=== PATIENT | female | born 1990 | race African-American/Black ===

== ENCOUNTER 2016-08-14 00:37 | Emergency (ER) | payer SELFPAY ==
[2016-08-14 01:23] LABS: #Eosinphils 0.1 thou/uL (0.0-0.7); #Lymphocytes 0.6 thou/uL (1.20-3.40); #Monocytes 0.1 thou/uL (0.11-0.59); #Neutrophils 5.9 thou/uL (1.40-6.50); %Basophils 0.2 % (0.0-1.0); %Lymphocytes 8.4 % (21.0-51.0); %Monocytes 1.6 % (0.0-10.0); %Neutrophils 88.8 % (42.0-75.0); Hemoglobin 12.9 g/dL (12.0-16.0); Mean Corpuscular HGB CONC 33.2 g/dL (32.0-36.0); Mean Corpuscular Hemoglobin 27.6 pg (27.0-31.0); Mean Corpuscular Volume 82.9 fl (81.0-99.0); Mean Platelet Volume 7.9 fL (7.4-10.4); Platelet Count 217 thou/uL (130-400); RBC Distribution Width 13.6 % (11.5-14.5); Red Blood Cell (RBC) Count 4.67 mill/uL (4.20-5.40); White Blood Cell (WBC) Count 6.6 thou/uL (4.8-10.8)
[2016-08-14] MEDS ORDERED: Ondansetron HCl/PF 4 MG/2 ML Vial ONE (01:26)
[2016-08-14] MEDS ORDERED: Acetaminophen 500 MG TAB ONE (01:27)
[2016-08-14 01:32] LABS: BHCG - Serum NEGATIVE (NEGATIVE); Pregs Control Background? CLEAR/WHITE (CLR/WHITE); Pregs Control Bar Appear? YES (CONTROL BAR)
[2016-08-14 01:44] LABS: ALT (SGPT) 21 U/L (0-55); AST (SGOT) 24 U/L (5-34); Albumin 4.5 g/dL (3.5-5.0); Alkaline Phosphatase 75 U/L (40-150); Anion Gap 19 mmol/L (10-20); BUN (Urea Nitrogen) 10 mg/dL (7.0-18.7); Bilirubin, Total 0.3 mg/dL (0.2-1.2); Calc. Creatinine Clearance 0 mL/min (70-130); Calcium 9.1 mg/dL (7.8-10.44); Carbon Dioxide 19 mmol/L (22-29); Chloride 105 mmol/L (98-107); Estimated GFR-MDRD 78; Globulin 3.2 g/dL (2.4-3.5); Glucose 109 mg/dL (70-105); Potassium 3.7 mmol/L (3.5-5.1); Protein, Total 7.7 g/dL (6.0-8.3); Sodium 139 mmol/L (136-145)
[2016-08-14] MEDS ORDERED: Loperamide HCl 2 MG CAP ONE (01:57)
--- NOTE | 2016-08-14 03:19 | ERRECORD ---
[facility] EMERGENCY RECORD HPI NAUSEA/VOMITING/DIARRHEA (01:55 BPIC) CHIEF COMPLAINT: Patient presents for evaluation of nausea, Patient presents for evaluation of vomiting, Patient presents for evaluation of diarrhea. HISTORIAN: History provided by patient, Pt with N/V/D that has started within the past 24-48 hours. No unusual travel, food or sick contacts. Mild non focal abdominal cramping. LOCATION FEMALE: Symptoms are generalized. TIME COURSE: Gradual onset of symptoms, There has been no change in the patient's symptoms over time. ASSOCIATED WITH FEMALE: No associated bright red blood per rectum, No associated hematemesis. EXACERBATED BY: Patient's condition exacerbated by nothing. RELIEVED BY: Patient's condition relieved by nothing. ROS (01:55 BPIC) CONSTITUTIONAL: Negative constitutional review of systems, Historian denies chills, Historian denies fever. EYES: Negative eye review of systems. ENT: Negative ears, nose, throat review of systems. CARDIOVASCULAR: Negative cardiovascular review of systems, Historian denies chest pain, Historian denies palpitations. RESPIRATORY: Negative respiratory review of systems, Historian denies cough, Historian denies shortness of breath. GI: see hpi. MUSCULOSKELETAL: Negative musculoskeletal review of systems. SKIN: Negative skin review of systems. NEUROLOGIC: Negative neurologic review of systems. ENDOCRINE: Negative endocrine review of systems. HEMO/LYMPHATIC: Normal hematologic/lymphatic system review. PSYCHIATRIC: Negative psychiatric review of systems. NOTES: All other ROS is negative except as listed in HPI. PAST MEDICAL HISTORY MEDICAL HISTORY: Notes: SCOLIOSIS, Flu vaccine up to date, Tetanus not up to date, Pneumococcal vaccine up to date, Flu vaccine up to date, Tetanus immunization up to date, Notes: SCOLOSIS. 516. (00:50 ADEA) FEMALE SURGICAL HISTORY: Patient has no surgical history, Patient has no surgical history. 11-25-16. (00:50 ADEA) PSYCHIATRIC HISTORY: Notes: DENIES, Notes: DENIES, No previous psychiatric history. 16. (00:50 ADEA) SOCIAL HISTORY: Patient denies alcohol use, Patient denies drug use, Patient has no smoking history, Lives at home, with family, Patient denies alcohol use, Patient denies drug use, Patient has no smoking history, Lives at home, with family, Patient denies alcohol use, Patient denies drug use, Patient has no smoking history, &a-1R&a+25V*p+0X*d9504L*c202B*c15G*c2P*p-0X&a-25V&a+1R Name: Mariaelena Iqbal : 1990 F26 MedRec: [id number] AcctNum: [id number] Prepared: [facility] Aug 14, 2016 05:30 by Interface Page 1 of 4 pMD [facility] EMERGENCY RECORD Patient denies alcohol use, Patient denies drug use, Patient has no smoking history. (00:50 ADEA) FAMILY HISTORY: Family istory is not significant, No significant family history. (00:50 ADEA) NOTES: I have reviewed and agree with the PMH/PSxH/FamHx/SocHx obtained by the nurse. (01:55 BPIC) KNOWN ALLERGIES Penicillins: Reaction: Hives, Severity: Severe, Source: Patient CURRENT MEDICATIONS (00:48 ADEA) TYLENOL: 30 MLS AT 0000. VITAL SIGNS VITAL SIGNS: BP: 100/81 (Sitting), Pulse: 124, Resp: 22, Temp: 101.1 (Tympanic), Pain: 10, O2 sat: 95 on Face mask, Time: 08/14/2016 00:44. (00:44 ADEA) BP: 99/57, Pulse: 68, Time: 08/14/2016 02:55. (02:55 MCRS) BP: 99/57, Pulse: 68, Resp: 18, Temp: 99.2, Pain: 0, O2 sat: 98, Time: 08/14/2016 02:55. (02:55 MCRS) BP: 112/60 (Right Arm), Pulse: 66, Time: 08/14/2016 02:00. (02:00 MCRS) (02:00 MCRS) BP: 112/60, Pulse: 66, Resp: 18, Pain: 0, O2 sat: 98 on Room Air, Time: 08/14/2016 02:00. (02:00 MCRS) PHYSICAL EXAM (01:55 BPIC) CONSTITUTIONAL: Vital signs reviewed, Patient appears non toxic, Patient alert and oriented to person, place and time, Pt is in no apparent distress. HEAD: Head exam included findings of head atraumatic, normocephalic. EYES: Eye exam included findings of eyelids normal to inspection, Pupils equally round and reactive to light, Extraocular muscles intact. ENT: ENT exam normal, Nose exam normal, no nasal deformity, no bleeding from nares, Pharynx exam normal, Mouth exam normal, mucous membranes moist. NECK: Neck exam included findings of normal range of motion, Trachea midline. RESPIRATORY CHEST: Respiratory and chest exam normal, Breath sounds clear, No wheezing, No rales, Chest exam included findings of chest movement symmetrical, Chest expansion equal. CARDIOVASCULAR: Cardiovascular assessment normal, Cardiovascular exam included findings of heart rate regular rate and rhythm, Heart sounds normal. ABDOMEN FEMALE: Abdominal exam included findings of abdomen nontender, Bowel sounds normal, no mass, no pulsatile masses, no peritoneal signs. BACK: Back exam included findings of normal inspection, range of motion normal, no costovertebral angle tenderness. &a-1R&a+25V*p+0X*[id number]*c202B*c15G*c2P*p-0X&a-25V&a+1R Name: Mariaelena Iqbal : 1990 F26 MedRec: [id number] AcctNum: [id number] Prepared: [facility] Aug 14, 2016 05:30 by Interface Page 2 of 4 pMD [facility] EMERGENCY RECORD UPPER EXTREMITY: Upper extremity exam included findings of inspection normal, Range of motion normal. LOWER EXTREMITY: Lower extremity exam included findings of inspection normal, Range of motion normal. NEURO: Neuro exam findings include patient oriented to person, place and time, Speech normal, no focal motor deficits, no focal sensory deficits. SKIN: Skin exam included findings of skin warm, dry, and normal in color. LYMPHATIC: Lymphatic exam normal. PSYCHIATRIC: Psychiatric exam included findings of patient oriented to person place and time, Normal affect. MEDICATION ADMINISTRATION SUMMARY Drug Name: Imodium, Dose Ordered: 2 mg, Route: Oral, Status: Given, Time: 02:00 08/14/2016, Drug Name: acetaminophen oral, Dose Ordered: 1 g, Route: Oral, Status: Given, Time: 01:40 08/14/2016, Drug Name: sodium chloride 0.9 % intravenous, Dose Ordered: 1000 mL, Route: IV Fluid Infusion, Status: Given, Time: 01:39 08/14/2016, Drug Name: ondansetron HCl intravenous, Dose Ordered: 4 mg, Route: IV Push, Status: Given, Time: 01:38 08/14/2016, Detailed record available in Medication Service section. DOCTOR NOTES (:55 BPIC) TEXT: N/V/D symptomatic treatment, icreased fluid intake and Return to the ED with any development of increasing abdominal pain. likely viral gastroenteritis, but risks of appendicitis discussed I discussed the diagnosis with the patient prior to discharge. All questions were answered. There is no indication for admission currently and the patient will follow up with his primary care physician. Any pertinent labs or imaging was reviewed and dicussed with the patient. If any new or emergent symptoms occur, the patient will return to the emergency department. PROBLEM LIST No recorded problems DIAGNOSIS ( BPIC) FINAL: PRIMARY: Vomiting, ADDITIONAL: Diarrhea, Fever. PRESCRIPTION (57 BPIC) traMADol: TABLET : 50 mg : ORAL : Quantity: 50 Unit: mg Route: ORAL Schedule: every 6 hours PRN Dispense: 20 Unit: tab(s) May substitute. Refills: No Refills . NOTES: No Refills. &a-1R&a+25V*p+0X*c3210J*c202B*c15G*c2P*p-0X&a-25V&a+1R Name: Mariaelena Iqbal : 1990 F26 MedRec: [id number] AcctNum: [id number] Prepared: [facility] Aug 14, 2016 05:30 by Interface Page 3 of 4 pMD [facility] EMERGENCY RECORD Zofran ODT: TABLET,DISINTEGRATING : 8 mg : ORAL : Quantity: 8 Unit: mg Route: ORAL Schedule: every 6 hours PRN Dispense: 20 Unit: tab(s) May substitute. Refills: No Refills . NOTES: ^s=No Refills No Refills. DISPOSITION PATIENT: Disposition Type: Discharge, Disposition: *Discharge Home, Condition: Good. (:57 BPIC) Disposition Transport: Car. (03:14 MCRS) Patient left the department. (03:14 MCRS) Soto: YANELY=FELICIA Muller, Juma BPIC=MD Caroline, Momo MCRS=FELICIA Starks, Malcolm &a-1R&a+25V*p+0X*v2215L*c202B*c15G*c2P*p-0X&a-25V&a+1R Name: Mariaelena Iqbal : 1990 F26 MedRec: [id number] AcctNum: [id number] Prepared: [facility] Aug 14, 2016 05:30 by Interface Page 4 of 4 pMD MTDD
--- NOTE | 2016-08-14 03:25 | PICIS ---
[facility] EMERGENCY RECORD TRIAGE (00:47 ADEA) TRIAGE NOTES: LOOSE STOOLS X 2 DAYS AND DON'T FEEL GOOD. (00:47 ADEA) PATIENT: NAME: Mariaelena Iqbal, AGE: 26, GENDER: female, : Thu1990, TIME OF GREET: ThuAug 14, 2016 00:38, PREFERRED LANGUAGE: Albanian, ETHNICITY: Not or , FALL RISK: NO, ECODE BILLING MAP: [facility], SSN: [id number], Zip Code: [address], KG WEIGHT: 74.84, , , PERSON ID: [id number], PCP: NONE. (00:47 ADEA) PHONE: . (00:52) COMPLAINT: FLU LIKE SYMPTOMS. (00:47 ADEA) ADMISSION: URGENCY: 3 Urgent, ADMISSION SOURCE: Home, TRANSPORT: CAR, BED: ED -05. (00:47 ADEA) SIRS SCORING: Heart Rate 110-139 (2), Temp range 96.8-101.1 (0), respiratory rate 12-24 (0), Mental Status altered: no (0), Infection or Suspected Infection: No. (00:50 ADEA) TRIAGE SCREENING: Patient denies suicidal ideation, Patient denies presence of domestic violence. (00:50 ADEA) LMP: Last menstrual period: 07/17/2016. (00:50 ADEA) PROVIDERS: TRIAGE NURSE: Juma Muller RN. (00:47 ADEA) VITAL SIGNS: BP 100/81, (Sitting), Pulse 124, Resp 22, Temp 101.1, (Tympanic), Pain 10, O2 Sat 95, on Face mask, Time 08/14/2016 00:44. (00:44 ADEA) KNOWN ALLERGIES Penicillins: Reaction: Hives, Severity: Severe, Source: Patient CURRENT MEDICATIONS (00:48 ADEA) TYLENOL: 30 MLS AT 0000. VITAL SIGNS VITAL SIGNS: BP: 100/81 (Sitting), Pulse: 124, Resp: 22, Temp: 101.1 (Tympanic), Pain: 10, O2 sat: 95 on Face mask, Time: 08/14/2016 00:44. (00:44 ADEA) BP: 99/57, Pulse: 68, Time: 08/14/2016 02:55. (02:55 MCRS) BP: 99/57, Pulse: 68, Resp: 18, Temp: 99.2, Pain: 0, O2 sat: 98, Time: 08/14/2016 02:55. (02:55 MCRS) BP: 112/60 (Right Arm), Pulse: 66, Time: 08/14/2016 02:00. (02:00 MCRS) (02:00 MCRS) BP: 112/60, Pulse: 66, Resp: 18, Pain: 0, O2 sat: 98 on Room Air, Time: 08/14/2016 02:00. (02:00 MCRS) NURSING ASSESSMENT: ABDOMEN (00:50 ADEA) CONSTITUTIONAL: Complex assessment performed, Patient arrives ambulatory, Gait steady, History obtained from patient, Patient appears, restless, uncomfortable, Patient cooperative, Patient alert, Oriented to person, place and time, Skin warm, Skin dry, Skin normal in color, Mucous membranes pink, Mucous membranes, dry, tacky, Patient is well-groomed, Patient complains of DIARRHEA AND "I DON'T FEEL &a-1R&a+25V*p+0X*s4562R*c202B*c15G*c2P*p-0X&a-25V&a+1R Name: Mariaelena Iqbal : 1990 F26 MedRec: [id number] AcctNum: [id number] Prepared: [facility] Aug 14, 2016 05:35 by Interface Page [address] [facility] EMERGENCY RECORD GOOD". PAIN: cramping pain, diffusely, GENERALIZED BODY ACHES, Onset of pain 2 DAYS, constant, on a scale 0-10 patient rates pain as 10, Pain exacerbated by nothing, Nothing has been tried to alleviate the pain. ABDOMEN: Bowel sounds, hyperactive, Associated with nausea, Associated with vomiting, history of vomiting, Number of times: 4 TIMES ON 08/13/16. LMP: Last menstrual period is unknown, Notes: PT THINKS LMP MAY HAVE BEEN BEFORE BAL. NOTES: Emotional support needed and given. SAFETY: Side rails up, Cart/Stretcher in lowest position, Family at bedside, Call light within reach, Hospital ID band on. NURSING PROCEDURE: BEDSIDE TESTING (00:48 ADEA) PATIENT IDENTIFIER: Patient actively involved in identification process, Patient's identity verified by patient stating name, Patient's identity verified by patient stating date, Patient's identity verified by hospital ID bracelet, Patient's identity verified by other identifier FLU SWAB OBTAINED, TOLERATED WELL. NURSING PROCEDURE: DISCHARGE NOTE (02:55 MCRS) DISCHARGE: Patient discharged to home, ambulating without assistance, driving self, accompanied by other family member, Summary of Care printed/ provided, Patient requested and was provided an electronic copy of Discharge Instructions, Transition record given to patient, Discharge instructions given to patient, Simple or moderate discharge teaching performed, SEE LIST OF MEDS GIVEN AND SCRIPS PROVIDED, Prescriptions given and instructions on side effects given, Name of prescription(s) given: SEE LIST, Medication reconciliation form given, and reviewed with patient, Above person(s) verbalized understanding of discharge instructions and follow-up care, Patient treated and evaluated by physician. BELONGINGS: Valuables remain with patient. VITAL SIGNS: BP: 99, / 57, Pulse: 68. BP: 99, / 57, Pulse: 68, Resp: 18, Temp: 99.2, Pain: 0, O2 sat: 98. NURSING PROCEDURE: IV PATIENT IDENITIFIER: Patient actively involved in identification process, Patient's identity verified by hospital ID bracellilia. (01:23 MCRS) IV SITE 1: IV therapy indicated for hydration, IV established, to the left antecubital, using a 20 gauge catheter, in two attempts, IV site prepped with CHLOROPREP. (01:23 MCRS) FOLLOW-UP SITE 1: After procedure, 2x2 dressing applied, IV discontinued, due to patient being discharged, catheter intact, After removal. (02:50 MCRS) NURSING PROCEDURE: NURSE NOTES (01:50 MCRS) &a-1R&a+25V*p+0X*j3537O*c202B*c15G*c2P*p-0X&a-25V&a+1R Name: Mariaelena Iqbal : 1990 F26 MedRec: [id number] AcctNum: [id number] Prepared: Rosie Aug 14, 2016 05:35 by Interface Page [address] [facility] EMERGENCY RECORD NURSES NOTES: Patient assisted to bathroom with steady gait, Patient in no apparent distress, Warm blanket given to patient, Notes: IV BOLUS INFUSING. ORDER DETAILS Order Name: CBC with Differential, Status: Active, Time: 00:54 08/14/2016, User: BPIC, - Ordered for: MD Velazquez Bryan, - Entered by: MD Velazquez Bryan - Rosie Aug 14, 2016 00:54, - Quantity: 1, Order Name: Comprehensive Metabolic Panel, Status: Active, Time: 00:54 08/14/2016, User: BPIC, - Ordered for: MD Velazquez Bryan, - Entered by: MD Velazquez Bryan - Rosie Aug 14, 2016 00:54, - Quantity: 1, Order Name: Influenza A&B Ag Screen, Status: Active, Time: 00:54 08/14/2016, User: BPIC, - Ordered for: MD Velazquez Bryan, - Entered by: MD Velazquez Bryan - Rosie Aug 14, 2016 00:54, - Quantity: 1, Order Name: Test, Serum (BHCG), Status: Active, Time: 00:54 08/14/2016, User: BPIC, - Ordered for: MD Velazquez Bryan, - Entered by: MD Velazquez Bryan - [facility] Aug 14, 2016 00:54, - Quantity: 1, Order Name: SALINE LOCK, Status: Done, Time: 01:23 08/14/2016, User: MCRS, - Ordered for: MD Velazquez Bryan, - Entered by: MD Velazquez Bryan - [facility] Aug 14, 2016 00:54, - Quantity: 1. MEDICATION ADMINISTRATION SUMMARY Drug Name: Imodium, Dose Ordered: 2 mg, Route: Oral, Status: Given, Time: 02:00 08/14/2016, Drug Name: acetaminophen oral, Dose Ordered: 1 g, Route: Oral, Status: Given, Time: 01:40 08/14/2016, Drug Name: sodium chloride 0.9 % intravenous, Dose Ordered: 1000 mL, Route: IV Fluid Infusion, Status: Given, Time: 01:39 08/14/2016, Drug Name: ondansetron HCl intravenous, Dose Ordered: 4 mg, Route: IV Push, Status: Given, Time: 01:38 08/14/2016, Detailed record available in Medication Service section. MEDICATION SERVICE acetaminophen oral: Order: acetaminophen oral (acetaminophen) - Dose: 1 g : Oral Schedule: Now Ordered by: Momo Velazquez MD Entered by: Momo Velazquez MD [facility] Aug 14, 2016 00:55 , &a-1R&a+25V*p+0X*k2276L*c202B*c15G*c2P*p-0X&a-25V&a+1R Name: Mariaelena Iqbal : 1990 F26 MedRec: [id number] AcctNum: [id number] Prepared: [facility] Aug 14, 2016 05:35 by Interface Page [address] [facility] EMERGENCY RECORD Acknowledged by: Malcolm Starks RN [facility] Aug 14, 2016 01:24 Documented as given by: Malcolm Starks RN [facility] Aug 14, 2016 01:40 Patient, Medication, Dose, Route and Time verified prior to administration. Amount given: 1000mg, Site: Medication administered P.O., Patient appears Awake and alert- acceptable, Correct patient, time, route, dose and medication confirmed prior to administration, Patient advised of actions and side-effects prior to administration, Allergies confirmed and medications reviewed prior to administration, Patient in position of comfort, Side rails up, Cart in lowest position, Family at bedside. : Follow Up : Response assessment performed, No signs or symptoms of allergic reaction noted, Decreased temperature, Advised not to ambulate without assistance, Patient in position of comfort, Side rails up, Cart in lowest position, Family at bedside. (02:50 MCRS) Imodium: Order: Imodium (loperamide HCl) - Dose: 2 mg : Oral Schedule: Now Ordered by: Momo Velazquez MD Entered by: Momo Velazquez MD [facility] Aug 14, 2016 01:56 , Acknowledged by: Malcolm Starks RN [facility] Aug 14, 2016 01:57 Documented as given by: Malcolm Starks RN [facility] Aug 14, 2016 02:00 Patient, Medication, Dose, Route and Time verified prior to administration. Amount given: 2MG, Site: Medication administered P.O., Patient appears Awake and alert- acceptable, Correct patient, time, route, dose and medication confirmed prior to administration, Patient advised of actions and side-effects prior to administration, Allergies confirmed and medications reviewed prior to administration, Patient in position of comfort, Side rails up, Cart in lowest position, Family at bedside. : Follow Up : Response assessment performed, No signs or symptoms of allergic reaction noted, Decreased symptoms. (02:50 [facility]) ondansetron HCl intravenous: Order: ondansetron HCl intravenous (ondansetron HCl) - Dose: 4 mg : IV Push Ordered by: Momo Velazquez MD Entered by: Momo Velazquez MD [facility] Aug 14, 2016 00:55 , Acknowledged by: Malcolm Starks RN [facility] Aug 14, 2016 01:24 Documented as given by: Malcolm Starks RN [facility] Aug 14, 2016 01:38 Patient, Medication, Dose, Route and Time verified prior to administration. Amount given: 4mg, IV SITE #1 IVP, initial medication, Slowly, Awake and alert- acceptable, Catheter placement confirmed via flush prior to administration, IV site without signs or symptoms of infiltration during medication administration, No swelling during administration, No drainage during administration, IV flushed after administration, Correct patient, time, route, dose and medication confirmed prior to administration, Patient advised of actions and side-effects prior to &a-1R&a+25V*p+0X*h0150M*c202B*c15G*c2P*p-0X&a-25V&a+1R Name: Mariaelena Iqbal : 1990 F26 MedRec: [id number] AcctNum: [id number] Prepared: [facility] Aug 14, 2016 05:35 by Interface Page [address] [facility] EMERGENCY RECORD administration, Allergies confirmed and medications reviewed prior to administration, Patient in position of comfort, Side rails up, Cart in lowest position, Family at bedside. : Follow Up : Response assessment performed, No signs or symptoms of allergic reaction noted, Decreased vomiting, Decreased nausea, _IV SITE #1:_. (02:50 [facility]) sodium chloride 0.9 % intravenous: Order: sodium chloride 0.9 % intravenous (0.9 % sodium chloride) - Dose: 1000 mL : IV Fluid Infusion Ordered by: Momo Velazquez MD Entered by: Momo Velazquez MD [facility] Aug 14, 2016 00:55 , Acknowledged by: Malcolm Starks RN [facility] Aug 14, 2016 01:24 Documented as given by: Malcolm Starks RN [facility] Aug 14, 2016 01:39 Patient, Medication, Dose, Route and Time verified prior to administration. Amount given: 1000, IV SITE #1 IV fluids established for hydration, IV SITE #1 into left antecubital, IV SITE #1 1st bag hung, amount 1 Liter hung, IV SITE #1 bolus of 1000 ml established, Awake and alert- acceptable, Catheter placement confirmed via flush prior to administration, IV site without signs or symptoms of infiltration during medication administration, No swelling during administration, No drainage during administration, IV flushed after administration, Correct patient, time, route, dose and medication confirmed prior to administration, Patient advised of actions and side-effects prior to administration, Allergies confirmed and medications reviewed prior to administration, Patient in position of comfort, Side rails up, Cart in lowest position, Family at bedside. : Follow Up : Response assessment performed, No signs or symptoms of allergic reaction noted, Decreased symptoms, Decreased temperature, _IV SITE #1:_, Medication infusion changed to HYDRATE, IV fluid infusion discontinued, on Rosie Aug 14, 2016 02:50, Total fluid hydration time IV site 1 1 hour, 15 minutes, ., Total amount infused: 1000ML, IV Discontinued with catheter intact. (02:50 MCRS) HPI NAUSEA/VOMITING/DIARRHEA (01:55 BPIC) CHIEF COMPLAINT: Patient presents for evaluation of nausea, Patient presents for evaluation of vomiting, Patient presents for evaluation of diarrhea. HISTORIAN: History provided by patient, Pt with N/V/D that has started within the past 24-48 hours. No unusual travel, food or sick contacts. Mild non focal abdominal cramping. LOCATION FEMALE: Symptoms are generalized. TIME COURSE: Gradual onset of symptoms, There has been no change in the patient's symptoms over time. ASSOCIATED WITH FEMALE: No associated bright red blood per rectum, No associated hematemesis. EXACERBATED BY: Patient's condition exacerbated by nothing. RELIEVED BY: Patient's condition relieved by nothing. &a-1R&a+25V*p+0X*j7232Z*c202B*c15G*c2P*p-0X&a-25V&a+1R Name: Lanie Iqbalary : 1990 F26 MedRec: [id number] AcctNum: [id number] Prepared: Rosie Aug 14, 2016 05:35 by Interface Page [address] [facility] EMERGENCY RECORD ROS (01:55 BPIC) CONSTITUTIONAL: Negative constitutional review of systems, Historian denies chills, Historian denies fever. EYES: Negative eye review of systems. ENT: Negative ears, nose, throat review of systems. CARDIOVASCULAR: Negative cardiovascular review of systems, Historian denies chest pain, Historian denies palpitations. RESPIRATORY: Negative respiratory review of systems, Historian denies cough, Historian denies shortness of breath. GI: see hpi. MUSCULOSKELETAL: Negative musculoskeletal review of systems. SKIN: Negative skin review of systems. NEUROLOGIC: Negative neurologic review of systems. ENDOCRINE: Negative endocrine review of systems. HEMO/LYMPHATIC: Normal hematologic/lymphatic system review. PSYCHIATRIC: Negative psychiatric review of systems. NOTES: All other ROS is negative except as listed in HPI. PAST MEDICAL HISTORY MEDICAL HISTORY: Notes: SCOLIOSIS, Flu vaccine up to date, Tetanus not up to date, Pneumococcal vaccine up to date, Flu vaccine up to date, Tetanus immunization up to date, Notes: SCOLOSIS. 5-2-16. (00:50 ADEA) FEMALE SURGICAL HISTORY: Patient has no surgical history, Patient has no surgical history. 5-2-16. (00:50 ADEA) PSYCHIATRIC HISTORY: Notes: DENIES, Notes: DENIES, No previous psychiatric history. 5-2-16. (00:50 ADEA) SOCIAL HISTORY: Patient denies alcohol use, Patient denies drug use, Patient has no smoking history, Lives at home, with family, Patient denies alcohol use, Patient denies drug use, Patient has no smoking history, Lives at home, with family, Patient denies alcohol use, Patient denies drug use, Patient has no smoking history, Patient denies alcohol use, Patient denies drug use, Patient has no smoking history. (00:50 ADEA) FAMILY HISTORY: Family istory is not significant, No significant family history. (00:50 ADEA) NOTES: I have reviewed and agree with the PMH/PSxH/FamHx/SocHx obtained by the nurse. (01:55 BPIC) PHYSICAL EXAM (01:55 BPIC) CONSTITUTIONAL: Vital signs reviewed, Patient appears non toxic, Patient alert and oriented to person, place and time, Pt is in no apparent distress. HEAD: Head exam included findings of head atraumatic, normocephalic. EYES: Eye exam included findings of eyelids normal to inspection, Pupils equally round and reactive to light, Extraocular &a-1R&a+25V*p+0X*x7932T*c202B*c15G*c2P*p-0X&a-25V&a+1R Name: Mariaelena Iqbal : 1990 F26 MedRec: [id number] AcctNum: [id number] Prepared: ThuAug 14, 2016 05:35 by Interface Page [address] [facility] EMERGENCY RECORD muscles intact. ENT: ENT exam normal, Nose exam normal, no nasal deformity, no bleeding from nares, Pharynx exam normal, Mouth exam normal, mucous membranes moist. NECK: Neck exam included findings of normal range of motion, Trachea midline. RESPIRATORY CHEST: Respiratory and chest exam normal, Breath sounds clear, No wheezing, No rales, Chest exam included findings of chest movement symmetrical, Chest expansion equal. CARDIOVASCULAR: Cardiovascular assessment normal, Cardiovascular exam included findings of heart rate regular rate and rhythm, Heart sounds normal. ABDOMEN FEMALE: Abdominal exam included findings of abdomen nontender, Bowel sounds normal, no mass, no pulsatile masses, no peritoneal signs. BACK: Back exam included findings of normal inspection, range of motion normal, no costovertebral angle tenderness. UPPER EXTREMITY: Upper extremity exam included findings of inspection normal, Range of motion normal. LOWER EXTREMITY: Lower extremity exam included findings of inspection normal, Range of motion normal. NEURO: Neuro exam findings include patient oriented to person, place and time, Speech normal, no focal motor deficits, no focal sensory deficits. SKIN: Skin exam included findings of skin warm, dry, and normal in color. LYMPHATIC: Lymphatic exam normal. PSYCHIATRIC: Psychiatric exam included findings of patient oriented to person place and time, Normal affect. EVENTS TRANSFER: Triage to Emergency Main ED -05. (ThuAug 14, 2016 00:47 ADEA) Removed from Emergency Main ED -05. (03:14 MCRS) DOCTOR NOTES (01:55 BPIC) TEXT: N/V/D symptomatic treatment, icreased fluid intake and Return to the ED with any development of increasing abdominal pain. likely viral gastroenteritis, but risks of appendicitis discussed I discussed the diagnosis with the patient prior to discharge. All questions were answered. There is no indication for admission currently and the patient will follow up with his primary care physician. Any pertinent labs or imaging was reviewed and dicussed with the patient. If any new or emergent symptoms occur, the patient will return to the emergency department. PROBLEM LIST No recorded problems &a-1R&a+25V*p+0X*o3138I*c202B*c15G*c2P*p-0X&a-25V&a+1R Name: Mariaelena Iqbal : 1990 F26 MedRec: [id number] AcctNum: [id number] Prepared: Rosie Aug 14, 2016 05:35 by Interface Page [address] [facility] EMERGENCY RECORD DIAGNOSIS (01:57 BPIC) FINAL: PRIMARY: Vomiting, ADDITIONAL: Diarrhea, Fever. DISPOSITION PATIENT: Disposition Type: Discharge, Disposition: *Discharge Home, Condition: Good. (01:57 BPIC) Disposition Transport: Car. (03:14 MCRS) Patient left the department. (03:14 MCRS) INSTRUCTION (01:58 BPIC) DISCHARGE: DIET, VOMITING OR DIARRHEA [6YR-ADULT]. FOLLOWUP: MARTIR, -, Primary Care Referral Line, . SPECIAL: Thank you for choosing [facility] for your care today! Please follow up with your doctor in the next 2-3 days. Return to the emergency department with any emergent or worsening concerns. God Bless you!. PRESCRIPTION (01:57 BPIC) traMADol: TABLET : 50 mg : ORAL : Quantity: 50 Unit: mg Route: ORAL Schedule: every 6 hours PRN Dispense: 20 Unit: tab(s) May substitute. Refills: No Refills . NOTES: No Refills. Zofran ODT: TABLET,DISINTEGRATING : 8 mg : ORAL : Quantity: 8 Unit: mg Route: ORAL Schedule: every 6 hours PRN Dispense: 20 Unit: tab(s) May substitute. Refills: No Refills . NOTES: ^s=No Refills No Refills. IMAGING WORK/SCHOOL RELEASE: Image captured from scanner. (02:57 MCRS) *SUPPLY CHARGE SHEET: Image captured from scanner. (02:57 MCRS) *DISCHARGE INSTRUCTIONS RECEIPT: Image captured from scanner. (02:58 MCRS) Page 2 added. Image captured from scanner. (02:58 MCRS) ADMIN DIGITAL SIGNATURE: FELICIA Starks, Malcolm. (03:14 MCRS) MD Velazquez Bryan. (05:25 BPIC) RESULTS LABORATORY: CBC with Differential Collection DT: ThuAug 14, 2016 01:22, White Blood Cell (WBC) Count 6.6 thou/uL, Range (4.8-10.8), Red Blood Cell (RBC) Count 4.67 mill/uL, Range (4.20-5.40), Hemoglobin 12.9 g/dL, Range (12.0-16.0), Hematocrit 38.7 %, Range (36.0-47.0), Mean Corpuscular Volume 82.9 fl, Range (81.0-99.0), &a-1R&a+25V*p+0X*a7987W*c202B*c15G*c2P*p-0X&a-25V&a+1R Name: Mariaelena Iqbal : 1990 F26 MedRec: [id number] AcctNum: [id number] Prepared: ThuAug 14, 2016 05:35 by Interface Page [address] [facility] EMERGENCY RECORD Mean Corpuscular Hemoglobin 27.6 pg, Range (27.0-31.0), Mean Corpuscular HGB CONC 33.2 g/dL, Range (32.0-36.0), RBC Distribution Width 13.6 %, Range (11.5-14.5), Platelet Count 217 thou/uL, Range (130-400), Mean Platelet Volume 7.9 fL, Range (7.4-10.4), *%Neutrophils 88.8 - H %, Range (42.0-75.0), *%Lymphocytes 8.4 - L %, Range (21.0-51.0), %Monocytes 1.6 %, Range (0.0-10.0), %Eosinophils 1.0 %, Range (0.0-10.0), %Basophils 0.2 %, Range (0.0-1.0), #Neutrophils 5.9 thou/uL, Range (1.40-6.50), *#Lymphocytes 0.6 - L thou/uL, Range (1.20-3.40), *#Monocytes 0.1 - L thou/uL, Range (0.11-0.59), #Eosinphils 0.1 thou/uL, Range (0.0-0.7), #Basophils 0.0 thou/uL, Range (0.0-0.2). (01:31 BPIC) MICROBIOLOGY: Influenza A&B Ag Screen: [id number] Collection DT: Rosie Aug 14, 2016 01:29, See comment below , @ ER ROOM#: ED- Source: Nasal swab Spec Desc: , Influenza A Antigen: NEGATIVE for the , presence of , INFLUENZA A Antigen , Influenza B Antigen: NEGATIVE for the , presence of , INFLUENZA B Antigen , The rapid Flu A&B test can distinguish between influenza A , Influenza A&B Ag Screen See comment below , and B viruses, but it does not differentiate influenza , Influenza A&B Ag Screen See comment below , subtypes. , Influenza A&B Ag Screen See comment below , Influenza A&B Ag Screen See comment below , Influenza A&B Ag Screen See comment below , Influenza A&B Ag Screen See comment below , characteristics of this device with human specimens infected , Influenza A&B Ag Screen See comment below , with the 2008 H1N1 influenza virus have not been , Influenza A&B Ag Screen See comment below , established. For example: this test cannot distinguish , Influenza A&B Ag Screen See comment below , influenza infections caused by novel H1N1 influenza A , Influenza A&B Ag Screen See comment below , viruses versus seasonal influenza A viruses. , Influenza A&B Ag Screen See comment below , , Influenza A&B Ag Screen See comment below , A negative result does not exclude influenza virus , Influenza A&B Ag Screen See comment below , infection; therefore, if more conclusive testing is desired, , Influenza A&B Ag Screen See comment below , follow up confirmatory testing is warranted., &a-1R&a+25V*p+0X*c4579N*c202B*c15G*c2P*p-0X&a-25V&a+1R Name: Mariaelena Iqbal : 1990 F26 MedRec: [id number] AcctNum: [id number] Prepared: ThuAug 14, 2016 05:35 by Interface Page [address] [facility] EMERGENCY RECORD Influenza A&B Ag Screen See comment below . (01:47 BPIC) LABORATORY: Comprehensive Metabolic Panel Collection DT: ThuAug 14, 2016 01:22, Sodium 139 mmol/L, Range (136-145), Potassium 3.7 mmol/L, Range (3.5-5.1), Chloride 105 mmol/L, Range (98-107), *Carbon Dioxide 19 - L mmol/L, Range (22-29), Anion Gap 19 mmol/L, Range (10-20), BUN (Urea Nitrogen) 10 mg/dL, Range (7.0-18.7), Creatinine 1.04 mg/dL, Range (0.6-1.1), Estimated GFR-MDRD 78 , Reference Range for Estimated GFR: Greater than 90, mL/min/1.73 m2 NOTE: The MDRD equation has not been validated for use, with the elderly (over 70 years of age), women, patients with, serious comorbid condition or persons with extremes of body size, muscle, mass, or nutritional status. , *Glucose 109 - H mg/dL, Range (70-105), Calcium 9.1 mg/dL, Range (7.8-10.44), Bilirubin, Total 0.3 mg/dL, Range (0.2-1.2), Protein, Total 7.7 g/dL, Range (6.0-8.3), NOTE: Plasma values are generally 0.3 to 0.5 g/dL higher than serum values, due to the presence of fibrinogen. , Albumin 4.5 g/dL, Range (3.5-5.0), Globulin 3.2 g/dL, Range (2.4-3.5), Alb/Glob Ratio 1.4 g/dL, Range (1.2-2.2), Alkaline Phosphatase 75 U/L, Range (40-150), AST (SGOT) 24 U/L, Range (5-34), ALT (SGPT) 21 U/L, Range (0-55). (01:47 BPIC) Test, Serum (BHCG) Collection DT: ThuAug 14, 2016 01:22, BHCG - Serum NEGATIVE , Range (NEGATIVE), Method of sensitivity- Indeterminant: results should be repeated, after 48 hours. Positive: results may be detected as early as 4-5 days before a first missed menses. Elimination of BHCG-, Elimination following first trimester D&C: 29-44 Days , Elimination following term : 8-24 Days . (01:47 BPIC) Soto: ADEA=FELICIA uMller, Juma BPIC=MD Caroline, Momo MCRS=FELICIA Starks, Malcolm &a-1R&a+25V*p+0X*[id number]*c202B*c15G*c2P*p-0X&a-25V&a+1R Name: IqbalMariaelena chino : 1990 F26 MedRec: [id number] AcctNum: [id number] Prepared: ThuAug 14, 2016 05:35 by Interface Page 10 of 10 pMD MTDD
[2016-08-14] MEDS ORDERED: Sodium Chloride 0.9% 1,000 ML BAG ONE (13:19)
== END 2016-08-14 02:55 | disposition home or self-care (01) ==
LOC: MADERS 00:37
DX: R11.10 Vomiting, unspecified (principal); R19.7 Diarrhea, unspecified; R50.9 Fever, unspecified
CPT/HCPCS: 80053; 84703; 85025; 96361; 96374; J2405; J7050

== ENCOUNTER 2022-02-20 09:11 | Emergency (ER) | payer BC, OTHER ==
[~2022-02-20 09:11] MED LIST: Sodium Chloride 0.9% 1,000 ML BAG ONE
[2022-02-20 09:42] LABS: Hemoglobin 8.4 g/dL (12.0-16.0); Mean Corpuscular HGB CONC 29.2 g/dL (32.0-36.0); Mean Corpuscular Hemoglobin 21.2 pg (27.0-31.0); Mean Corpuscular Volume 72.6 fL (78.0-98.0); RBC Distribution Width 18.3 % (11.5-14.5); Red Blood Cell (RBC) Count 3.96 mill/uL (4.20-5.40); White Blood Cell (WBC) Count 8.7 thou/uL (4.8-10.8)
[2022-02-20 09:43] LABS: #Basophils 0.1 thou/uL (0.0-0.2); #Eosinphils 0.1 thou/uL (0.0-0.7); #Lymphocytes 1.7 thou/uL (1.20-3.40); #Monocytes 0.5 thou/uL (0.11-0.59); #Neutrophils 6.3 thou/uL (1.40-6.50); %Basophils 0.7 % (0.0-1.0); %Eosinophils 1.1 % (0.0-10.0); %Lymphocytes 19.6 % (21.0-51.0); %Monocytes 6.3 % (0.0-10.0); %Neutrophils 72.4 % (42.0-75.0); Mean Platelet Volume 10.1 fL (7.4-10.4); Platelet Count 164 thou/uL (130-400)
[2022-02-20 09:52] LABS: Anisocytosis SLIGHT = 6-15 cells (100X) (0-5/hpf); Critical Call w/ Read Back 627610
[2022-02-20 09:53] LABS: Platelet Morphology Comment Appears Adequate; Poikilocytosis SLIGHT = 6-15 cells (100X) (0-5/hpf)
[2022-02-20 10:01] LABS: ALT (SGPT) 26 U/L (8-55); AST (SGOT) 27 U/L (5-34); Alkaline Phosphatase 161 U/L (40-110); Anion Gap 12 mmol/L (10-20); BUN (Urea Nitrogen) 8 mg/dL (7.0-18.7); Bilirubin, Total 0.3 mg/dL (0.2-1.2); Calc. Creatinine Clearance 0 mL/min (70-130); Calcium 8.5 mg/dL (7.8-10.44); Carbon Dioxide 20 mmol/L (22-29); Chloride 111 mmol/L (98-107); Estimated GFR 103; Globulin 3.2 g/dL (2.4-3.5); Glucose 117 mg/dL (70-105); Potassium 3.9 mmol/L (3.5-5.1); Protein, Total 6.2 g/dL (6.0-8.3); Sodium 139 mmol/L (136-145)
[2022-02-20 10:35] LABS: Bilirubin Negative (Negative); Blood, Urine Large (Negative); Clarity Hazy (Clear); Glucose, Urine (Dipstick) Negative (Negative); Ketone, Urine Negative (Negative); Leukocyte Trace (Negative); Nitrite Negative (Negative); Protein, Urine (Dipstick) Trace mg/dL (Neg-Trace); Specific Gravity, Urine 1.015 (1.005-1.030); Urobilinogen 0.2 mg/dL (Less than 2)
[2022-02-20 10:43] LABS: Bacteria/HPF Rare-Few HPF (None Seen)
== END 2022-02-20 10:37 | disposition short-term general hospital (02) ==
LOC: MADERS 09:11
DX: O60.03 Preterm labor without delivery, third trimester (principal); Z3A.30 30 weeks gestation of pregnancy
CPT/HCPCS: 80053; 81003; 81015; 85025; 96360; J7050

== ENCOUNTER 2023-12-03 01:19 | Emergency (ER) | payer SELFPAY ==
[2023-12-03] MEDS ORDERED: diphenhydrAMINE 50 MG/ML VIAL ONE (01:39)
[2023-12-03 01:44] LABS: Bilirubin Negative (Negative); Blood, Urine Negative (Negative); Clarity Clear (Clear); Glucose, Urine (Dipstick) Negative (Negative); Ketone, Urine 40 mg/dL (Negative); Leukocyte Negative (Negative); Nitrite Negative (Negative); Pregnancy Test - Urine (BHCG) POSITIVE (Negative); Pregu Control Background? CLEAR/WHITE (CLR/WHITE); Pregu Control Bar Appear? YES (CONTROL BAR); Protein, Urine (Dipstick) 30 mg/dL (Neg-Trace); Specific Gravity 1.034 (1.002-1.036); Urobilinogen 0.2 mg/dL (Less than 2); pH, Urine 6.5 (5.0-9.0)
[2023-12-03 01:45] LABS: Specific Gravity, Urine 1.034 (1.002-1.036)
[2023-12-03 01:47] LABS: Bacteria/HPF 1+ HPF (None Seen); CAUTI Indications for Culture Pregnancy; RBC/HPF None Seen HPF (0-3); WBC/HPF 0-3 HPF (0-3)
[2023-12-03 01:48] LABS: Urine Culture Reflex Yes Yes
== END 2023-12-03 02:00 | disposition home or self-care (01) ==
LOC: MADERS 01:19
DX: R11.2 Nausea with vomiting, unspecified (principal); Z33.1 Pregnant state, incidental
CPT/HCPCS: 81001; 81025; 87086; 96372; 99284; J1200

== ENCOUNTER 2023-12-15 04:39 | Emergency (ER) | payer MEDICAID ==
[~2023-12-15 04:39] MED LIST changes: +Ondansetron ODT 4 MG TAB ONE; -Sodium Chloride 0.9% 1,000 ML BAG ONE
== END 2023-12-15 05:00 | disposition home or self-care (01) ==
LOC: MADERS 04:39
DX: O21.0 Mild hyperemesis gravidarum (principal); Z3A.11 11 weeks gestation of pregnancy; O24.419 Gestational diabetes mellitus in pregnancy, unspecified control
CPT/HCPCS: 99283; Q0162

== ENCOUNTER 2024-01-02 06:27 | Emergency (ER) | payer MEDICAID ==
[2024-01-02] MEDS ORDERED: Ondansetron PF 4 MG/2 ML Vial ONE (06:46)
[2024-01-02] MEDS ORDERED: Sodium Chloride 0.9% 1,000 ML ONE (06:46)
[2024-01-02 07:10] LABS: #Basophils 0.1 thou/uL (0.0-0.2); #Eosinphils 0.1 thou/uL (0.0-0.7); #Lymphocytes 2.8 thou/uL (1.20-3.40); #Monocytes 0.7 thou/uL (0.11-0.59); #Neutrophils 8.7 thou/uL (1.40-6.50); %Basophils 0.9 % (0.0-1.0); %Lymphocytes 22.7 % (21.0-51.0); %Monocytes 5.3 % (0.0-10.0); %Neutrophils 70.1 % (42.0-75.0); Anisocytosis SLIGHT = 6-15 cells (100X) (0-5/hpf); Hematocrit 33.9 % (36.0-47.0); Hemoglobin 10.4 g/dL (12.0-16.0); MDiff Complete? YES; Mean Corpuscular HGB CONC 30.6 g/dL (32.0-36.0); Mean Corpuscular Hemoglobin 23.9 pg (27.0-31.0); Mean Corpuscular Volume 78.2 fl (78.0-98.0); Mean Platelet Volume 7.7 fL (7.4-10.4); Platelet Adequacy Comment Appears Adequate; Platelet Count 253 10x3/uL (130-400); RBC Distribution Width 16.2 % (11.5-14.5); Red Blood Cell (RBC) Count 4.34 mill/uL (4.20-5.40); White Blood Cell (WBC) Count 12.4 10x3/uL (4.8-10.8)
[2024-01-02 07:17] LABS: ALT (SGPT) 14 U/L (8-55); AST (SGOT) 19 U/L (5-34); Albumin 3.8 g/dL (3.5-5.0); Alkaline Phosphatase 60 U/L (40-110); Anion Gap 17 mmol/L (10-20); BUN (Urea Nitrogen) 10 mg/dL (7.0-18.7); Bilirubin, Total Less than 0.2 mg/dL (0.2-1.2); Calc. Creatinine Clearance 0 mL/min (70-130); Calcium 8.9 mg/dL (7.8-10.44); Carbon Dioxide 15 mmol/L (22-29); Chloride 105 mmol/L (98-107); Estimated GFR 104; Globulin 3.5 g/dL (2.4-3.5); Glucose 85 mg/dL (70-105); Potassium 3.7 mmol/L (3.5-5.1); Protein, Total 7.3 g/dL (6.0-8.3); Sodium 133 mmol/L (136-145)
[2024-01-02 08:00] LABS: Bilirubin Negative (Negative); Blood, Urine Negative (Negative); Clarity Hazy (Clear); Glucose, Urine (Dipstick) Negative (Negative); Ketone, Urine Trace mg/dL (Negative); Leukocyte Negative (Negative); Nitrite Negative (Negative); Protein, Urine (Dipstick) Negative (Neg-Trace); Urobilinogen 0.2 mg/dL (Less than 2)
[2024-01-02 08:03] LABS: CAUTI Indications for Culture Pregnancy; RBC/HPF 0-3 HPF (0-3); Squamous Epithelial 0-3 HPF (0-3); WBC/HPF None Seen HPF (0-3)
[2024-01-02 08:04] LABS: Bacteria/HPF Rare-Few HPF (None Seen); Urine Culture Reflex Yes Yes
== END 2024-01-02 08:27 | disposition home or self-care (01) ==
LOC: MADERS 06:27
DX: R11.2 Nausea with vomiting, unspecified (principal); Z33.1 Pregnant state, incidental
CPT/HCPCS: 80053; 81001; 84702; 85025; 87086; 96361; 96374; J2405; J7050